=== PATIENT | female | born 1965 | race Caucasian/White ===

== ENCOUNTER → 2024-03-31 07:13 | Outpatient (REF) | payer BC, SELFPAY | LOC: HWRCS 07:13 | PROVIDERS: ATTENDING PHYSICIAN Internal Medicine Interventional Cardiology; FAMILY PHYSICIAN Family Medicine | DX: R07.89 Other chest pain (principal); I10 Essential (primary) hypertension; Z82.49 Family history of ischemic heart disease and other diseases of the circulatory system | CPT/HCPCS: 93306 ==

== ENCOUNTER → 2024-04-10 07:17 | Outpatient (REF) | payer BC, SELFPAY | LOC: DHCBC/DCA 07:17 | PROVIDERS: ATTENDING PHYSICIAN Internal Medicine Interventional Cardiology; FAMILY PHYSICIAN Family Medicine | DX: R07.89 Other chest pain (principal); I10 Essential (primary) hypertension; Z82.49 Family history of ischemic heart disease and other diseases of the circulatory system | CPT/HCPCS: 78452; 93017; A9500 ==

== ENCOUNTER → 2024-06-06 06:44 | Day surgery (SDC) | payer BC, SELFPAY | LOC: GI 06:44 | PROVIDERS: ATTENDING PHYSICIAN Internal Medicine Gastroenterology | DX: Z12.11 Encounter for screening for malignant neoplasm of colon (principal); K57.30 Diverticulosis of large intestine without perforation or abscess without bleeding; K64.8 Other hemorrhoids; Z86.010 Personal history of colon polyps | CPT/HCPCS: G0105 ==

== ENCOUNTER 2024-10-18 05:14 | Inpatient (IN) | payer BC, SELFPAY ==
[2024-10-17 21:50] VITALS: BP 149/80
--- NOTE | 2024-10-17 23:44 | ED.GENMED ---
History of Present Illness
<Twila Patino MD, Resident - Last Filed: 10/18/24 23:11>
General
Chief Complaint: Flank Pain
Source: patient
Time Seen by Provider: 10/17/24 23:35
History of Present Illness
History of Present Illness:
This is a 59 year old female patient with PMH of HTN coming to the ER with concerns of left flank pain. She states this afternoon she started to experience lower abdominal pain initially that she describes as a dull crampy pain. After some time,
pain migrated to a continuous left flank and she started to experience nausea which prompted her to come to the ER. In the waitining room, she experienced a severe pain episode in left flank that she described as 10/10 which was nonradiating. She
denies any vomiting, fever, chills or dysuria. She has regular bowel movements. She denies any prior personal or family history of kidney stones.
Past History
<Twila Patino MD, Resident - Last Filed: 10/18/24 23:11>
Past History
ED Past Medical History: HTN and Other (Diverticulitis)
ED Past Surgical History: Cholecystectomy
Social History
Tobacco: Non-smoker
Alcohol: Occasional
Drug: None
Personal:
Living: with family
Employment: Employed
Family History
Family History: CAD
Review of Systems
<Twila Patino MD, Resident - Last Filed: 10/18/24 23:11>
Review of Systems
Constitutional: Denies fever or chills
Cardiac: Denies chest pain or palpitations
ABD/GI: Reports nausea; Denies vomiting
: Reports flank pain (left); Denies dysuria
Phy Exam
<Twila Patino MD, Resident - Last Filed: 10/18/24 23:11>
General Physical Exam
General Presentation: well appearing and no apparent distress
Cardiovascular Exam
Cardiovascular Exam: regular rate/rhythm and no murmur
Heart Sounds: normal
Pulmonary Exam
Pulmonary Exam: lungs clear
Gastrointestinal Exam
Gastrointestinal Exam: non tender, soft, non distended and other (left flank tenderness)
Neurological Exam
Neurological Exam: oriented x3
Musculoskeletal Exam
Musculoskeletal Exam: no edema
Skin Exam
Skin Exam: warm/dry
Psychiatric Exam
Psychiatric Exam: normal mood/affect
Course
<Twila Viola Patino MD, Resident - Last Filed: 10/18/24 23:11>
Orders/Labs/Results
Orders:
Orders
10/17/24 23:52
UA Reflex to Culture [Urinalysis Reflex To Culture] Urgent
Date Specimen was Collected: 10/17/24
Time Specimen was Collected: 23:53
10/18/24 00:09
CT Abd/pel Without Iv Or Oral Urgent
Comment:
Reason For Exam: left flank pain
Ketorolac [Toradol] 30 mg IM NOW STA
Ondansetron Orally Disint [Zofran Odt (Orally Disintegrating)] 4 mg PO NOW STA
10/18/24 00:37
Urine Microscopic Reflex Cult Urgent
10/18/24 00:44
Ondansetron Injectable [Zofran] 4 mg .ROUTE .STK-MED ONE
10/18/24 00:46
BMP [Basic Metabolic Panel] Urgent
Complete Blood Count/With Diff Urgent
10/18/24 00:49
Ketorolac [Toradol] 30 mg IV NOW STA
10/18/24 00:51
Ondansetron Injectable [Zofran] 4 mg IV NOW STA
10/18/24 02:15
Ketorolac [Toradol] 15 mg IV NOW STA
10/18/24 02:42
UROLOGY CONSULT Urgent
Consulting Provider: Star Dhaliwal
Was physician already notified: Yes
Ceftriaxone Sodium [Rocephin] 500 mg IM NOW STA
10/18/24 02:47
Morphine Sulfate 4 mg IV NOW STA
10/18/24 03:25
CefTRIAXone [Rocephin] 1,000 mg IV NOW STA
10/18/24 04:56
Admit/Transfer Patient As Directed
Co-Sign Provider:
Level of Care: Inpatient admission
Assign to:: Medical/Surgical
Physician / Group: hospitalist
Diagnosis: nephrolithiasis
Reason for Hospitalization: left nephrolithiasis
Expected length of stay greater than two midnights?: Yes
ELOS- Estimated Length of Stay in days: 2
I certify the patient meets the requirements for IP care: Yes
PRN Pain Medication Management As Directed
May give lesser potent ordered pain med per pt: Yes
preference::
Protocol:: Medication orders for pain may be administered in a
manner that supports deferring to patient preference
when the pt is:
- Requesting an ordered lesser potent pain medication.
Least to most potent pain medications are defined
as: acetaminophen < NSAID < tramadol < opioids
(morphine, oxycodone, hydromorphone).
- Requesting a lesser dose of the same medication IF
ORDERED.
- Requesting a less intrusive route of administration
if both routes are prescribed by the provider (PO <
IV).
10/18/24 04:58
Code Status As Directed
Resuscitation Status: Full Code
10/18/24 Breakfast
NPO
Allow oral meds: No
Allow clear liquids: No
NPO with Ice Chips: Yes
10/18/24 06:22
Acetaminophen [Tylenol] 650 mg PO Q4HPRN PRN
Bisacodyl [Dulcolax] 10 mg RECTAL [id number] PRN
Docusate W/Senna [Senokot-S] 1 tablet PO BIDPRN PRN
Ketorolac [Toradol] 10 mg IV Q6HPRN PRN
Lactated Ringers [Lr] 1,000 ml IV 75 mls/hr
Morphine Sulfate 2 mg IV Q4HPRN PRN
Ondansetron Injectable [Zofran] 4 mg IV Q6HPRN PRN
Polyethylene Glycol Powder [Miralax] 17 grams PO DAILYPRN PRN
10/18/24 06:22
Activity As Directed
Activity Level: With Assistance
Vital Signs As Directed
Frequency: Per unit guidelines
DX Deep Vein Thrombosis Video Routine
10/18/24 18:00
Enoxaparin Sodium [Lovenox] 40 mg SC QPM
10/19/24 00:00
CefTRIAXone [Rocephin] 1,000 mg IV Q24H
10/19/24 06:00
Basic Metabolic Panel IN AM
Complete Blood Count/No Diff IN AM
Magnesium IN AM
PTT IN AM
Prothrombin Time IN AM
10/19/24 08:00
Amlodipine [Norvasc] 5 mg PO DAILY
Abnormal Lab Results
10/18/24 10/18/24
00:37 00:46
MCHC 32.4 L g/dL
(33.0-37.0)
MPV 11.0 H fL
(7.4-10.4)
Absolute Neuts (auto) 7.7 H 10^3/uL
(1.4-6.5)
Absolute Monos (auto) 0.7 H 10^3/uL
(0.1-0.6)
Lymphocytes % 17.4 L %
(20.5-51.1)
Glucose 113 H mg/dl
(70-99)
Ur Occult Blood Reflex Trace A
(Negative)
Urine Bacteria (Reflex) Few A
(Negative)
10/18/24 00:46
10/18/24 00:46
Vital Signs
Initial and Last Documented VS:
Initial Vital Signs
Temp Pulse Resp BP Pulse Ox
97.8 F 75 18 149/80 97
10/17/24 21:50 10/17/24 21:50 10/17/24 21:50 10/17/24 21:50 10/17/24 21:50
Last Documented Vital Signs
Temp Pulse Resp BP Pulse Ox
98.8 F 88 18 124/58 96
10/18/24 23:09 10/18/24 23:09 10/18/24 23:09 10/18/24 23:09 10/18/24 23:09
<Timothy Mcgee, DO - Last Filed: 10/18/24 00:11>
Orders/Labs/Results
Orders:
Orders
10/17/24 23:52
UA Reflex to Culture [Urinalysis Reflex To Culture] Urgent
Date Specimen was Collected: 10/17/24
Time Specimen was Collected: 23:53
10/18/24 00:09
CT Abd/pel Without Iv Or Oral Urgent
Comment:
Reason For Exam: left flank pain
Ketorolac [Toradol] 30 mg IM NOW STA
Ondansetron Orally Disint [Zofran Odt (Orally Disintegrating)] 4 mg PO NOW STA
10/18/24 00:37
Urine Microscopic Reflex Cult Urgent
10/18/24 00:44
Ondansetron Injectable [Zofran] 4 mg .ROUTE .STK-MED ONE
10/18/24 00:46
BMP [Basic Metabolic Panel] Urgent
Complete Blood Count/With Diff Urgent
10/18/24 00:49
Ketorolac [Toradol] 30 mg IV NOW STA
10/18/24 00:51
Ondansetron Injectable [Zofran] 4 mg IV NOW STA
10/18/24 02:15
Ketorolac [Toradol] 15 mg IV NOW STA
10/18/24 02:42
UROLOGY CONSULT Urgent
Consulting Provider: Star Dhaliwal
Was physician already notified: Yes
Ceftriaxone Sodium [Rocephin] 500 mg IM NOW STA
10/18/24 02:47
Morphine Sulfate 4 mg IV NOW STA
10/18/24 03:25
CefTRIAXone [Rocephin] 1,000 mg IV NOW STA
10/18/24 04:56
Admit/Transfer Patient As Directed
Co-Sign Provider:
Level of Care: Inpatient admission
Assign to:: Medical/Surgical
Physician / Group: hospitalist
Diagnosis: nephrolithiasis
Reason for Hospitalization: left nephrolithiasis
Expected length of stay greater than two midnights?: Yes
ELOS- Estimated Length of Stay in days: 2
I certify the patient meets the requirements for IP care: Yes
PRN Pain Medication Management As Directed
May give lesser potent ordered pain med per pt: Yes
preference::
Protocol:: Medication orders for pain may be administered in a
manner that supports deferring to patient preference
when the pt is:
- Requesting an ordered lesser potent pain medication.
Least to most potent pain medications are defined
as: acetaminophen < NSAID < tramadol < opioids
(morphine, oxycodone, hydromorphone).
- Requesting a lesser dose of the same medication IF
ORDERED.
- Requesting a less intrusive route of administration
if both routes are prescribed by the provider (PO <
IV).
10/18/24 04:58
Code Status As Directed
Resuscitation Status: Full Code
10/18/24 Breakfast
NPO
Allow oral meds: No
Allow clear liquids: No
NPO with Ice Chips: Yes
10/18/24 06:22
Acetaminophen [Tylenol] 650 mg PO Q4HPRN PRN
Bisacodyl [Dulcolax] 10 mg RECTAL [id number] PRN
Docusate W/Senna [Senokot-S] 1 tablet PO BIDPRN PRN
Ketorolac [Toradol] 10 mg IV Q6HPRN PRN
Lactated Ringers [Lr] 1,000 ml IV 75 mls/hr
Morphine Sulfate 2 mg IV Q4HPRN PRN
Ondansetron Injectable [Zofran] 4 mg IV Q6HPRN PRN
Polyethylene Glycol Powder [Miralax] 17 grams PO DAILYPRN PRN
10/18/24 06:22
Activity As Directed
Activity Level: With Assistance
Vital Signs As Directed
Frequency: Per unit guidelines
DX Deep Vein Thrombosis Video Routine
10/18/24 18:00
Enoxaparin Sodium [Lovenox] 40 mg SC QPM
10/19/24 00:00
CefTRIAXone [Rocephin] 1,000 mg IV Q24H
10/19/24 06:00
Basic Metabolic Panel IN AM
Complete Blood Count/No Diff IN AM
Magnesium IN AM
PTT IN AM
Prothrombin Time IN AM
10/19/24 08:00
Amlodipine [Norvasc] 5 mg PO DAILY
Abnormal Lab Results
10/18/24 10/18/24
00:37 00:46
MCHC 32.4 L g/dL
(33.0-37.0)
MPV 11.0 H fL
(7.4-10.4)
Absolute Neuts (auto) 7.7 H 10^3/uL
(1.4-6.5)
Absolute Monos (auto) 0.7 H 10^3/uL
(0.1-0.6)
Lymphocytes % 17.4 L %
(20.5-51.1)
Glucose 113 H mg/dl
(70-99)
Ur Occult Blood Reflex Trace A
(Negative)
Urine Bacteria (Reflex) Few A
(Negative)
10/18/24 00:46
10/18/24 00:46
Vital Signs
Initial and Last Documented VS:
Initial Vital Signs
Temp Pulse Resp BP Pulse Ox
97.8 F 75 18 149/80 97
10/17/24 21:50 10/17/24 21:50 10/17/24 21:50 10/17/24 21:50 10/17/24 21:50
Last Documented Vital Signs
Temp Pulse Resp BP Pulse Ox
98.8 F 88 18 124/58 96
10/18/24 23:09 10/18/24 23:09 10/18/24 23:09 10/18/24 23:09 10/18/24 23:09
<Twila Patino MD, Resident - Last Filed: 10/18/24 23:11>
*Critical Care Note
Total Time (30-74mins, 75-104mins- exclusive of procedures): Not Applicable
<Twila Patino MD, Resident - Last Filed: 10/18/24 23:11>
Update Note
Update Note:
Patient voided urine and appears to possibly has passed stone. CT abd showed left calyceal calcification [id number] with prominence of upper pole calyces and adjacent perinephric jovan and ?fornyceal rupture. Urology consulted, and pt is advised for OR
tomorrow for lithotripsy and stent placement. Pt will be admitted.
ED Attending Note
<Twila Patino MD, Resident - Last Filed: 10/18/24 23:11>
-
Portions of this chart may have been created with voice recognition software.� Occasional wrong word or��sound alike� substitutions may have occurred due to the inherent limitations of voice recognition software.
<Timothy Mcgee DO - Last Filed: 10/18/24 00:11>
ED Attending Note
Patient seen and examined by attending physician: Yes
I performed a history and physical exam of patient and discussed management with resident, I reviewed resident's note and agree with documented findings and plan of care.: Yes
ED Attending Note:
I have seen and evaluated the patient with a [id number] encounter. I have spoken to the advance practicer provider and involved in the medical history, the physical exam, medical decision making.
Evaluation and management service: agree unless noted differently below.
Results interpretation: agree unless noted differently below.
Focused HPI: 59-year-old female presenting with sudden onset of left flank pain. Since then, she has had a dull ache but it apparently comes and goes and becomes extremely painful. She denies a prior history of kidney stones. She developed a
significant pain episode in triage. On arrival back to her room, patient states she is feeling much better. She did urinate after giving a specimen and believes she passed a stone
Physical exam: Seen in bed comfortably. Very mild left lower quadrant pain.
Medical Decision Making: Given her history and complaint, we discussed likely kidney stone. It does appear that she passed a very small piece of sediment in her urine. Will obtain CT looking for more stones and hydronephrosis. Give dose of
Toradol will provide Zofran
Discharge Plan
Departure
Patient Disposition: Admit
Date of Disposition: 10/18/24
Time of Disposition: 03:08
Presentation/result/management discussed w/ accepting MD/DO: Hospitalist
Discharge Problem:
Nephrolithiasis
Interventions
Interventions:
*Risk Screen - Suicide Last Done: 10/17/24 21:50
*General Assessment Last Done: 10/17/24 21:50
*Neglect/Abuse Screening Last Done: 10/17/24 21:50
ED- Fall Risk Assessment Last Done: 10/17/24 23:48
*ED COVID-19 Vaccine History Last Done: 10/17/24 21:50
*Nursing Disposition Last Done: 10/18/24 05:58
OE-Myxmgn-Ovpzroreky Assessment Last Done: 10/17/24 23:43
ED-Female Genitourinary Assessment Last Done: 10/17/24 23:43
Discharge Date and Time
Discharge Date/Time: 10/18/24 06:04
[2024-10-17 23:47] VITALS: BP 137/69
[2024-10-17 23:50] VITALS: BMI 28.0
[2024-10-18] VITALS (16 sets, daily range): BP systolic 123–160; BP diastolic 58–107; BMI 27.4
[2024-10-18] MEDS: TORADOL 30 MG IV (00:49)
[2024-10-18] MEDS: ZOFRAN 4 MG IV (00:51)
[2024-10-18 00:56] LABS: Urine Albumin Negative (Neg - Trace); Urine Bilirubin Negative (Negative); Urine Character Clear (Clear); Urine Color Yellow; Urine Glucose Negative (Negative); Urine Ketone Negative (Negative); Urine Leukocyte Negative (Negative); Urine Nitrite Negative (Negative); Urine Occult Blood Trace (Negative); Urine Specific Gravity 1.005 (<1.030); Urine Urobilinogen Negative (Neg - 1+)
[2024-10-18 01:04] LABS: % Basophils 0.6 % (0-2); % Eosinophils 0.3 % (0-6); % Immature Granulocytes 0.3 % (0-0.5); % Lymphocytes 17.4 % (20.5-51.1); % Monocytes 6.3 % (1.7-9.3); % Neutrophils 75.1 % (42.2-75.2); Absolute Basophils 0.1 10^3/uL (0-0.2); Absolute Lymphocytes 1.8 10^3/uL (1.2-3.4); Absolute Monocytes 0.7 10^3/uL (0.1-0.6); Absolute Neutrophils 7.7 10^3/uL (1.4-6.5); Hematocrit 42.3 % (37.0-47.0); Hemoglobin 13.7 g/dL (12.0-16.0); Mean Corp Hgb Conc. 32.4 g/dL (33.0-37.0); Mean Corpuscular Hgb 28.8 pg (27.0-31.0); Mean Corpuscular Volume 88.9 fL (81.0-99.0); Nucleated Red Blood Cells % 0 %; Platelet Count 215 10^3/uL (130-400); Red Blood Cell Count 4.76 10^6/uL (4.20-5.40); Red Cell Dist. Width 12.5 % (11.5-14.5); White Blood Cell Count 10.3 10^3/uL (4.8-10.8)
[2024-10-18 01:12] LABS: Blood Urea Nitrogen 17 mg/dl (7-17); Calcium 9.4 mg/dl (8.4-10.2); Carbon Dioxide 24 mmol/L (22-30); Chloride 102 mmol/L (98-107); Estimated Creatinine Clearance 96 ml/min; Glucose 113 mg/dl (70-99); Potassium 4.2 mmol/L (3.5-5.1); Sodium 139 mmol/L (135-145); eGFR > 60.00
[2024-10-18 02:13] LABS: Urine Bacteria Few (Negative); Urine Red Blood Cell 0-2 /HPF (0-2); Urine Squamous Cell 0-2 /LPF (Few); Urine White Cell 0-2 /HPF (0-5)
[2024-10-18] MEDS: TORADOL 15 MG IV (02:23)
[2024-10-18] MEDS: MORPHINE SULFATE 4 MG IV (03:41)
[2024-10-18] MEDS: ROCEPHIN 1000 MG IV ×2 (03:41→23:15)
--- NOTE | 2024-10-18 05:11 | HPS.HSE ---
Family Physician
-
Family Physician: Romulo Hickey
Chief Complaint
-
Abdominal and flank pain
History of Present Illness
This is a 59-year-old female with history of hypertension presenting to the emergency department with acute onset of left-sided flank pain.
Patient reports that she been in usual state of health up until around 4:30 PM today when she developed bilateral abdominal crampy pain that was severe. Then the pain radiated to the left flank and has been there since. She reported severe left
flank pain with nausea but no vomiting. Because of the nausea that worsened when she laid she decided come to the emergency department. She had another severe episode on arrival to the ED noting the pain was more severe at around 10 PM. Patient
denies fevers or chills. She denies any hematuria. She denies history of kidney stones.
In the ED she was afebrile, hemodynamically stable with normal oxygen on room air. CBC was within normal limits. Chemistries BUN/creatinine were also normal. She had a CT of the abdomen pelvis showing a left calyceal calcification that is 10 x 40
mm with prominent of the upper pole calyces and adjacent perinephric edema.
Medical History
Past Medical History
Past Medical History: Reports HTN
Past Surgical History: Reports Cholecystectomy
Social History
Tobacco: Non-smoker
Alcohol: Occasional
Drug: None
Personal:
Living: With Family
Employment: Employed
Family History
Family History: Not pertinent
Allergies / Home Medications
Allergies reflects when Allergies were last updated in [facility].
Home Medications with original date entered in [facility]
Allergy/Medication List:
Allergies
Allergy/AdvReac Type Severity Reaction Status Date / Time
No Known Allergies Allergy Verified 10/17/24 21:49
Home Medications
Amlodipine 5mg tablet, 5mg po daily
Review of Systems
-
History Source: Patient
Constitutional: Reports No Symptoms
EENT: Reports No Symptoms
Respiratory: Reports No Symptoms
Cardiac: Reports No Symptoms
Abdomen/GI: Reports No Symptoms
: Reports Flank Pain
Musculoskeletal: Reports No Symptoms
Skin: Reports No Symptoms
Neurological: Reports No Symptoms
Endocrine: Reports No Symptoms
Hematologic/Lymphatic: Reports No Symptoms
Psych: Reports No Symptoms
Physical Exam
Vital Signs
Vital Signs
Temp Pulse Resp BP Pulse Ox
97.8 F 69 18 145/63 95
10/17/24 21:50 10/18/24 03:38 10/18/24 03:38 10/18/24 03:38 10/18/24 03:39
Physical Exam
General: Well Developed, Well Nourished, No Apparent Distress and Comfortable
HEENT: NormoCephalic, Anicteric, Moist mucous membranes and Atraumatic
Respiratory: Clear
Cardiac: S1/S2 and Regular Rhythm
Breast: Deferred by me
GI: Soft, Non Tender and Non Distended
Rectal: Deferred by Provider
Genito-urinary: Costovertebral angle tend
Musculoskeletal: No Clubbing, No Cyanosis and No Edema
Neuro: AO x 3
Hematologic/Lymphatic: No Lymphadenopathy
Psych: Calm
Laboratory Results
-
10/18/24 00:46
10/18/24 00:46
Data Reviewed
-
CT Scan: Report Reviewed by me
Lab Data: Labs Reviewed by me
Old Records: Reviewed
Impression/Plan
-
IMPRESSION:
59 y.o female with hypertension coming in with flank pain. Found to have a left sided large calcyeal stone with possible rupture. She is afebrile and shows no signs of acute infection.
PLAN:
1. Symptomatic nephrolithiasis w/ Left sided calyceal stone with possible rupture.
- admit to med/surg
- IV ceftriaxone for now
- npo
- urology aware and plan for OR today
- blood cultures if spike fever
DVT PPX - lovenox sq
Code status - full code
[2024-10-18] MEDS: LR 1000 IV (06:39)
[2024-10-18] MEDS: TORADOL 10 MG IV ×3 (08:24→20:34)
--- NOTE | 2024-10-18 10:34 | W.PN.URO.CBU ---
Today's Communication / Plan
-
for op room npo rocephin
Assessment / Plan
-
obstructing renal stones with forniceal ruptire tomop room
Diagnosis
-
Date of Service: October 18, 2024
-
Patient Diagnosis:left lg renal calculi forniceal rpture acute pain probable
Post Op Day:
Subjective
-
colic no fevr
Objective
-
Vital Signs
Temp Pulse Resp BP Pulse Ox
98.4 F 57 16 134/65 95
10/18/24 07:54 10/18/24 07:54 10/18/24 07:54 10/18/24 07:54 10/18/24 08:00
Laboratory Results
10/18/24 00:46
10/18/24 00:46
Review of Systems
-
Abdomen/GI: Nausea
: Flank Pain
Physical Exam
-
General - well developed, well nourished, non toxic but pain
Chest - clear bilaterally
Abdomen - soft, non-tender, positive bowel sounds, pos cvat, no incisional pain or distention
Genitalia - normal
Rectal - normal
Skin - warm & dry with no rash
Neuro - AOx3, no motor deficits
Extremities - no clubbing, no cyanosis, no edema
Incision - clean, dry
Dressing - clean, dry, intact
Care Review
Data Reviewed
Discussed with: Hospitalist, Nursing and Family
CT Scan: Image Pers Reviewed
--- NOTE | 2024-10-18 10:37 | W.SUR.POST ---
Surgical Immediate Post Op
Note
Pre Op Diagnosis: left renal stones with obstruction
Post Op Diagnosis: same
Procedure Performed: left ureteroscp y and laser 3 stones basket extractoion and jj stent
Primary Surgeon: zenaida
Secondary Surgeons:
Anesthesia:general dr Hendricks
Estimated Blood Loss: 10
Fluids: nss
Drains/Shunts:6 fr 24 cm jj stent
Specimens/Culturesstones:
Doppler/Duplex/Angio (Y/N):
Complications: 0
Operative Findings:
3llg stones 2 upper pole smaller lllp lasered and removed representaive samples
[2024-10-18] MEDS: DEMEROL 12.5 MG IV (10:50)
--- NOTE | 2024-10-18 11:17 | CM ---
Addendum entered by Marylu Lenz 10/18/24 12:08:
Patient seen at bedside after OR with also present. Patient states that they [place] a [place] community. Patient states that she has a first floor set up. Patient PCP is Dr. Hickey and she uses the [facility] [address] Patient stated that she
anticipates going home today. CM will continue to follow for discharge planning needs.
Plan; home with no needs anticipated
Original Note:
Cm attempted to visit with patient but she was in OR. CM will return to assess patient needs.
--- NOTE | 2024-10-18 11:18 | PTCARENOTE ---
Pt arrived back to [facility] from PACU s/p later litho, stent placement. Pt AAOx3, drowsy, on 2L NC satting 96%. Pt states no pain at this time, just mild pressure. Care ongoing.
--- NOTE | 2024-10-18 11:34 | W.PN.UPDATE ---
Update Note
Progress Note Update
Seen and examined independent of overnight physician. Nonbillable note. Seen preop. States of intermittent flank pain. Denies any nausea or vomiting. Denies any prior history of renal stones.
General: Well Developed, Well Nourished, No Apparent Distress and Comfortable
HEENT: NormoCephalic, Anicteric, Moist mucous membranes and Atraumatic
Respiratory: Clear
Cardiac: S1/S2 and Regular Rhythm
Breast: Deferred by me
GI: Soft, Non Tender and Non Distended
Rectal: Deferred by Provider
Genito-urinary: Costovertebral angle tend
Musculoskeletal: No Clubbing, No Cyanosis and No Edema
Neuro: AO x 3
Psych: Calm
IMPRESSION:
59 y.o female with hypertension coming in with flank pain. Found to have a left sided large calcyeal stone with possible rupture. She is afebrile and shows no signs of acute infection.
PLAN:
Symptomatic nephrolithiasis w/ Left sided calyceal stone with possible rupture.
- IV ceftriaxone for now. Discussed with neurology recommending 5 days of total antibiotics on discharge.
-Status post left ureteral scopy with renal stone extraction and JJ stent placement.
- blood cultures if spike fever
DVT PPX - lovenox sq
Code status - full code
d/w with urology.
[2024-10-18] MEDS: ULTRAM 25 MG PO (16:32)
[2024-10-18] MEDS: STERILE WATER FOR INJECTION 10 ML IV (23:16)
[2024-10-19 04:54] LABS: Hematocrit 41.2 % (37.0-47.0); Hemoglobin 13.1 g/dL (12.0-16.0); Mean Corp Hgb Conc. 31.8 g/dL (33.0-37.0); Mean Corpuscular Hgb 28.6 pg (27.0-31.0); Mean Platelet Volume 11.2 fL (7.4-10.4); Platelet Count 204 10^3/uL (130-400); Red Blood Cell Count 4.58 10^6/uL (4.20-5.40); Red Cell Dist. Width 12.5 % (11.5-14.5); White Blood Cell Count 13.5 10^3/uL (4.8-10.8)
[2024-10-19 04:57] LABS: INR 0.93; PT 12.8 Sec (11.4-14.6)
[2024-10-19 04:58] LABS: APTT 27.6 Sec (23.4-35.0)
[2024-10-19 05:17] LABS: Blood Urea Nitrogen 26 mg/dl (7-17); Calcium 9.4 mg/dl (8.4-10.2); Carbon Dioxide 26 mmol/L (22-30); Chloride 105 mmol/L (98-107); Estimated Creatinine Clearance 74 ml/min; Glucose 126 mg/dl (70-99); Potassium 4.4 mmol/L (3.5-5.1); Sodium 142 mmol/L (135-145); eGFR > 60.00
[2024-10-19] MEDS: TORADOL 10 MG IV (05:25)
[2024-10-19 07:05] VITALS: BP 144/75
[2024-10-19] MEDS: NORVASC 5 MG PO (08:11)
--- NOTE | 2024-10-19 08:48 | W.PN.URO.CBU ---
Today's Communication / Plan
-
home today
Assessment / Plan
-
post op stent discomfiort may discharge will follow up at [facility] for se[tent removal
Diagnosis
-
Date of Service: October 19, 2024
-
Patient Diagnosis:
Post Op Day:
Patient Diagnosis:left lg renal calculi forniceal rpture acute pain probable
Post Op Day:
Objective
-
Vital Signs
Temp Pulse Resp BP Pulse Ox
98.1 F 68 17 144/75 93
10/19/24 07:05 10/19/24 07:05 10/19/24 07:05 10/19/24 08:11 10/19/24 07:05
Intake and Output
10/18/24 10/19/24 10/20/24
06:59 06:59 06:59
Intake Total 3030 / 3030
Output Total 150 / 150
Balance 2880 / 2880
Intake:
Oral fluids 2400 / 2400
IV fluids (Total) 630 / 630
LR 30 / 30
Output:
Urine, Voided 150 / 150
Other:
Number of approximated MODERATE 2
amounts of urine
Number of approximated LARGE 1
amounts of urine
Laboratory Results
10/19/24 04:15
10/19/24 04:15
Review of Systems
-
Abdomen/GI: Abdominal Pain
: Frequency
Physical Exam
-
General - well developed, well nourished, no acute distress
Chest - clear bilaterally
Abdomen - soft, non-tender, positive bowel sounds, no CVAT, no incisional pain or distention
Genitalia - normal
Rectal - normal
Skin - warm & dry with no rash
Neuro - AOx3, no motor deficits
Extremities - no clubbing, no cyanosis, no edema
Incision - clean, dry
Dressing - clean, dry, intact
--- NOTE | 2024-10-19 10:19 | CM ---
Patient states she is for discharge home today with no needs anticipated. CM will continue to follow for discharge planning needs.
Plan; home today no needs anticipated
--- NOTE | 2024-10-19 10:33 | W.PN.HOSP.TC ---
Today's Communication/Plan
-
Po abx on dc
Op urology f/u
Assessment / Plan
Assessment / Plan
59 y.o female with hypertension coming in with flank pain. Found to have a left sided large calcyeal stone with possible rupture. She is afebrile and shows no signs of acute infection.
PLAN:
Symptomatic nephrolithiasis w/ Left sided calyceal stone
- IV ceftriaxone for now. Discussed with urology recommending 5 days of total antibiotics on discharge.
-Status post left ureteral scopy with renal stone extraction and JJ stent placement.
- Mild leukocytosis likely reactive. Remains afebrile.
Primary HTN-Cont norvvasc.
DVT PPX - lovenox sq
Code status - full code
More than 30 minutes spent in discharge including
Final examination of the patient
Summarizing hospital stay
Instructions for continuing care to all relevant caregivers
Preparation of discharge records, prescriptions, and referral forms
Total time spent (in minutes): 52
Anticipated Discharge: Today
Subjective/Interval History
-
Date of Service: October 19, 2024
feeling better
intermittent flank pain
Objective Data
-
Labs:
Laboratory Results
10/19/24
04:15
WBC 13.5 H
Hgb 13.1
Hct 41.2
Plt Count 204
PT 12.8
INR 0.93
APTT 27.6
Sodium 142
Potassium 4.4
Chloride 105
Carbon Dioxide 26
BUN 26 H
Creatinine 0.9
Glucose 126 H
Calcium 9.4
Vital Signs:
Vital Signs
Temp Pulse Resp BP Pulse Ox
98.1 F 68 17 144/75 93
10/19/24 07:05 10/19/24 07:05 10/19/24 07:05 10/19/24 08:11 10/19/24 08:00
I&O
10/18/24 10/19/24 10/20/24
06:59 06:59 06:59
Intake Total 3030 / 3030
Output Total 150 / 150
Balance 2880 / 2880
Physical Exam
-
General: Well Developed and No Apparent Distress
HEENT: Normocephalic, Atraumatic and Moist Mucous Membranes
Respiratory: Clear to Auscultation
Cardiac: Regular Rhythm and S1/S2; Negative Murmur, Rub or Gallop
GI: Soft, Nontender, Nondistended and Normal Bowel Sounds; Negative Organomegaly
Rectal: Deferred by Provider
Musculoskeletal: No Clubbing, No Cyanosis and No Edema
Skin: Negative Rash
Neuro: Nonfocal/Grossly Intact
--- NOTE | 2024-10-19 10:36 | W.DCSUMMARY ---
Discharge Summary
Discharge Data
Date of Admission: 10/18/24
Date of Discharge: 10/19/24
-
Pending Results: No
Hospital Course
59-year-old female past medical history of primary hypertension was presented with complaint of flank pain. Patient underwent imaging study which showed that she had renal stone left-sided obstructed. Patient was started on IV fluids and
antibiotics. Patient was eval per urology and patient underwent left ureteroscopy with renal stone extraction and stent placement. Postop patient with intermittent flank pain and mild hematuria which is expected per urology. Dr. Dhaliwal
recommended patient to be discharged on oral antibiotics for 5 days. Patient will need to follow-up with urology for ureteral stent removal as outpatient. Patient was afebrile and was tolerating diet and vital signs are stable and will be
discharged home.
Discharge Plan
-
Patient Disposition: Home (Routine Discharge)
Discharge Diagnosis/Procedures: Symptomatic nephrolithiasis with Left sided calyceal stone s/p cystoscopy s/p ureteroscopy with stone extraction/lithotripsy and stent placement
Condition: Fair
Diet: As tolerated
Activity: With assistance
Driving Restrictions: No driving for 24 hours
Referrals:
Star Dhaliwal MD [Active] - (call dr parker urology [phone] for update and ext 5 to schedue stent rtemval 2- 4 weks expect blood in urie pressure frequenctuy urgency of urination)
Romulo Hickey MD [Family Provider] -
Prescriptions:
New
cefadroxil 1 gram tablet
1,000 mg PO BID 5 Days Qty: 10 0RF
Continued
amlodipine 5 mg Tablet
5 mg PO DAILY
Discharge Orders:
Discharge Patient (As Directed); Ordered 10/19/24
Ordered By: Jacek Bull
Discharge Date and Time
Discharge Date/Time: 10/19/24 11:00
Print Language: BHUTANESE
[2024-10-19 10:49] VITALS: BP 135/77
== END 2024-10-19 11:00 | disposition home or self-care (01) | DRG 661 ==
LOC: 2 SOUTH 05:14
PROVIDERS: ADMITTING PHYSICIAN Internal Medicine; ATTENDING PHYSICIAN Hospitalist; CONSULT PHYSICIAN Specialist; EMERGENCY PHYSICIAN Student in an Organized Health Care Education/Training Program; FAMILY PHYSICIAN Family Medicine
PROC: 0T778DZ Dilation of Left Ureter with Intraluminal Device, Via Natural or Artificial Opening Endoscopic (ICD-10-PCS; 2024-10-18)
PROC: 0TCB8ZZ Extirpation of Matter from Bladder, Via Natural or Artificial Opening Endoscopic (ICD-10-PCS; 2024-10-18)
DX: N20.0 Calculus of kidney (principal); I10 Essential (primary) hypertension
CPT/HCPCS: 74018; 74176; 76000; 80048; 81003; 81015; 82365; 83735; 85025; 85027; 85610; 85730; 96372; 96374; 96375; 96376; 99284; A4300; C1894; C2617

== ENCOUNTER 2024-10-20 16:39 | Day surgery (SDC) | payer BC, SELFPAY ==
[2024-10-20] VITALS (15 sets, daily range): BP systolic 112–144; BP diastolic 66–85; BMI 26.8
[2024-10-20 12:57] LABS: % Basophils 0.3 % (0-2); % Eosinophils 0.1 % (0-6); % Immature Granulocytes 0.5 % (0-0.5); % Lymphocytes 9.9 % (20.5-51.1); % Monocytes 6.5 % (1.7-9.3); % Neutrophils 82.7 % (42.2-75.2); Absolute Immature Granulocytes 0.1 10^3/uL (0-0.05); Absolute Lymphocytes 1.3 10^3/uL (1.2-3.4); Absolute Monocytes 0.9 10^3/uL (0.1-0.6); Absolute Neutrophils 11.2 10^3/uL (1.4-6.5); Hematocrit 43.2 % (37.0-47.0); Hemoglobin 14.3 g/dL (12.0-16.0); Mean Corp Hgb Conc. 33.1 g/dL (33.0-37.0); Mean Corpuscular Hgb 29.4 pg (27.0-31.0); Mean Corpuscular Volume 88.7 fL (81.0-99.0); Mean Platelet Volume 10.8 fL (7.4-10.4); Nucleated Red Blood Cells % 0 %; Platelet Count 209 10^3/uL (130-400); Red Blood Cell Count 4.87 10^6/uL (4.20-5.40); Red Cell Dist. Width 12.7 % (11.5-14.5); White Blood Cell Count 13.5 10^3/uL (4.8-10.8)
[2024-10-20] MEDS: NSS 1000 IV ×2 (13:05→19:30)
[2024-10-20] MEDS: ZOFRAN 4 MG IV ×3 (13:05→18:23)
[2024-10-20] MEDS: DILAUDID 1 MG IV (13:05)
[2024-10-20 13:15] LABS: ALT (SGPT) 22 U/L (0-35); AST (SGOT) 32 U/L (14-36); Albumin 4.5 g/dl (3.5-5.0); Alkaline Phosphatase 84 U/L (38-126); Blood Urea Nitrogen 23 mg/dl (7-17); Calcium 9.7 mg/dl (8.4-10.2); Carbon Dioxide 26 mmol/L (22-30); Chloride 103 mmol/L (98-107); Glucose 105 mg/dl (70-99); Potassium 4.3 mmol/L (3.5-5.1); Sodium 142 mmol/L (135-145); Total Bilirubin 0.9 mg/dl (0.2-1.3); Total Protein 7.8 g/dl (6.3-8.2); eGFR > 60.00
[2024-10-20 14:35] LABS: Urine Albumin Trace (Neg - Trace); Urine Bilirubin Negative (Negative); Urine Character Very Cloudy (Clear); Urine Glucose Negative (Negative); Urine Ketone Trace (Negative); Urine Leukocyte 2+ (Negative); Urine Nitrite Negative (Negative); Urine Occult Blood 4+ (Negative); Urine Urobilinogen Negative (Neg - 1+)
[2024-10-20 14:57] LABS: Urine Color Pink
[2024-10-20 15:03] LABS: Urine Amorphous Seen; Urine Squamous Cell 0-2 /LPF (Few)
[2024-10-20 15:04] LABS: Urine Red Blood Cell >100 /HPF (0-2)
[2024-10-20 15:05] LABS: Urine White Cell 30-40 /HPF (0-5)
[2024-10-20] MEDS: TORADOL 15 MG IV (15:17)
--- NOTE | 2024-10-20 15:50 | ED.GENMED ---
History of Present Illness
General
Chief Complaint: Back Pain
Source: patient and spouse
Time Seen by Provider: 10/20/24 12:33
History of Present Illness
History of Present Illness:
This is 59-year-old female who presents with severe sudden pain in her left flank. She was recently here for kidney stone a stent placed. She had had mild discomfort in her pelvis related to the stent but that seemed to have been stable. Tonight
the pain got much worse. No vomiting or fevers. Pain is severe on my exam
Past History
Past History
ED Past Medical History: HTN and Other (Diverticulitis kidney stones)
ED Past Surgical History: Cholecystectomy and Urological (Ureteral stent)
Social History
Tobacco: Non-smoker
Alcohol: Occasional
Drug: None
Personal:
Living: with family
Employment: Employed
Family History
Family History: CAD
Phy Exam
Physical Exam
Physical Exam:
CONSTITUTIONAL Patient alert and oriented to person, place and time. Moderate to severe pain distress. Vital signs reviewed.
HEAD atraumatic, normocephalic.
EYES eyelids normal to inspection, Extraocular muscles intact, Conjunctiva normal, Sclera normal.
NECK normal range of motion, Trachea midline, no jugular venous distention.
RESPIRATORY CHEST No respiratory distress noted, Chest expansion equal
ABDOMEN abdomen nontender, Bowel sounds normal. No distention.
BACK normal inspection, no obvious deformities
UPPER EXTREMITY range of motion normal, Motor strength normal, no cyanosis, no edema.
LOWER EXTREMITY range of motion normal, Motor strength normal, no cyanosis, no edema.
NEURO Speech normal, No focal motor deficits, Nathrop coma scale 15, Memory normal, Cranial Nerves intact to screening exam.
SKIN skin warm, dry, and normal in color.
Course
Orders/Labs/Results
Orders:
Orders
10/20/24 Lunch
Regular
At Your Request: Full Participation
10/20/24 12:43
IV Insert/Care/Rem.- Treatment PRN
10/20/24 12:44
Complete Blood Count/With Diff Urgent
Comprehensive Metabolic Panel Urgent
10/20/24 12:55
0.9% Sodium Chloride 1000 ml [Nss] 1,000 ml IV BOLUS
HYDROmorphone [Dilaudid] 1 mg IV NOW STA
Ondansetron Injectable [Zofran] 4 mg IV NOW STA
10/20/24 13:29
CT Abd/pel Without Iv Or Oral Urgent
Comment:
Reason For Exam: L flank pain, recent ureteral stent
10/20/24 14:27
Urinalysis Reflex To Culture Urgent
Date Specimen was Collected: 10/20/24
Time Specimen was Collected: 14:02
Urine Microscopic Reflex Cult Urgent
Urine Culture Urgent
JAYDON Source: U
Specimen Description:
Date Specimen was Collected: 10/20/24
Time Specimen was Collected: 14:02
10/20/24 15:07
Ketorolac [Toradol] 15 mg IV NOW STA
Ondansetron Injectable [Zofran] 4 mg IV NOW STA
10/20/24 15:33
Fentanyl Citrate/Pf [Sublimaze] 25 mcg IV PACU-Q5MPRN PRN
Fentanyl Citrate/Pf [Sublimaze] 50 mcg IV PACU-Q5MPRN PRN
Meperidine [Demerol] 12.5 mg IV PACU-Q5MPRN PRN
Ondansetron Injectable [Zofran] 4 mg IV PACU-ONCEPRN PRN
Prochlorperazine [Compazine] 5 mg IV PACU-ONCEPRN PRN
Notify MD As Directed
Notify physician if: for SDS patients with known or suspected sleep obstructive sleep apnea, monitor in the
PACU.
Notify MD for any apneic/desaturation episodes
O2 Therapy [RESP] Urgent
Titrate/Wean O2 to maintain O2 sat greater than (%): 92
Special Instructions: -Provide supplemental oxygen to achieve O2 sat of 92% or greater.
-After 15 min, may wean O2 and discontinue if patient is able to maintain O2 sat of 92%
or greater during recovery period.
If patient is a discharge home, without oxygen therapy, notify anestheiologist if
unable to maintain O2 SAT of 92% or greater on room air for MD clearance.
10/20/24 15:51
CefTRIAXone [Rocephin] 1,000 mg IV NOW STA
10/20/24 15:59
Sterile Water [Sterile Water For Injection] 10 ml .ROUTE .STK-MED ONE
10/20/24 16:35
Code Status As Directed
Resuscitation Status: Full Code
Acetaminophen [Tylenol] 650 mg PO Q4HPRN PRN
Morphine Sulfate 4 mg IV Q1HPRN PRN
Ondansetron Injectable [Zofran] 4 mg IV Q6HPRN PRN
Oxycodone/Acetaminophen [Percocet 5/325] 1 tablet PO Q4HPRN PRN
Oxycodone/Acetaminophen [Percocet 5/325] 2 tablet PO Q4HPRN PRN
Activity As Directed
Activity Level: As Tolerated
Intake/ Output As Directed
Frequency: Per unit guidelines
Okay to Shower As Directed
Strain Urine As Directed
Surgical Procedure As Directed
Surgical Procedure: left rgp with exchange jj stents
Vital Signs As Directed
Frequency: Per unit guidelines
10/20/24 16:38
Iohexol [Omnipaque] 50 ml .ROUTE .STK-MED ONE
Andujar Catheter [Catheter- Indwelling] As Directed
Reason for insertion: Em-Op Remove POD #2
May discontinue catheter when patient ambulating: Yes
10/20/24 16:45
0.9% Sodium Chloride 1000 ml [Nss] 1,000 ml IV 125 mls/hr
10/20/24 16:47
Dexamethasone Sod Phosphate [Decadron] 20 mg .ROUTE .STK-MED ONE
Fentanyl Citrate/Pf [Sublimaze] 100 mcg .ROUTE .STK-MED ONE
Lidocaine HCl/Pf [Xylocaine-Mpf 1% Vial] 50 mg .ROUTE .STK-MED ONE
Midazolam HCl [Versed] 2 mg .ROUTE .STK-MED ONE
Propofol [Diprivan] 20 ml .ROUTE .STK-MED
10/20/24 16:50
CR Abdomen - 1 View Routine
Reason For Exam: EXCHANGE OF STENT, LEFT SIDE
RF Fluoroscopy, C-arm Routine
Reason For Exam: EXCHANGE OF STENT, LEFT SIDE
10/20/24 17:39
Advance Diet as Tolerated As Directed
Goal Diet: Regular
10/20/24 18:09
Admit Patient As Directed
Co-Sign Provider:
Level of Care: Post Proc/Surg Recovery
Assign to:: Medical/Surgical
Physician / Group: isra
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
Patient Condition: Good
Reason for Hospitalization: ivf monitoir renla ruptured
Expected length of stay greater than two midnights?: No
I certify the patient meets the requirements for IP care: No
Reason for Overnight Stay: Standard of Care
PRN Pain Medication Management As Directed
May give lesser potent ordered pain med per pt: Yes
preference::
Protocol:: Medication orders for pain may be administered in a
manner that supports deferring to patient preference
when the pt is:
- Requesting an ordered lesser potent pain medication.
Least to most potent pain medications are defined
as: acetaminophen < NSAID < tramadol < opioids
(morphine, oxycodone, hydromorphone).
- Requesting a lesser dose of the same medication IF
ORDERED.
- Requesting a less intrusive route of administration
if both routes are prescribed by the provider (PO <
IV).
10/20/24 18:11
Sequential Compression Sleeves [Pneumatic Compression Sleeves] As Directed
Type: Thigh high
10/20/24 18:12
DX Deep Vein Thrombosis Video Routine
10/20/24 19:00
Flush (0.9% Sodium Chloride) [Flush (Nss)] See Dose Instructions IV PER PROTOCOL
10/20/24 20:00
LevoFLOXacin 500 MG/100 ML [Levaquin] 500 mg in 100 ml IV Q24H
10/21/24 05:34
BMP [Basic Metabolic Panel] Routine
Complete Blood Count/With Diff Routine
10/21/24 08:00
Amlodipine [Norvasc] 5 mg PO DAILY
10/21/24 12:08
Ketorolac [Toradol] 30 mg IV NOW STA
Andujar, Discontinue [Discontinue Andujar Catheter] As Directed
Comment:
10/21/24 12:11
Ketorolac [Toradol] 15 mg IV Q8HPRN PRN
10/22/24 08:49
Discharge Patient As Directed
Discharge patient after: now
Is patient a candidate for the influenza vaccine?: No
Do you have a designated caregiver: Yes-same as spokesperson
Caregiver notified of upcoming discharge?: Yes
Abnormal Lab Results
10/20/24 10/20/24 10/21/24
12:44 14:27 05:34
WBC 13.5 H 10^3/uL 12.8 H 10^3/uL
(4.8-10.8) (4.8-10.8)
MCHC 32.6 L g/dL
(33.0-37.0)
MPV 10.8 H fL 11.5 H fL
(7.4-10.4) (7.4-10.4)
Abs Immat Gran (auto) 0.1 H 10^3/uL
(0-0.05)
Absolute Neuts (auto) 11.2 H 10^3/uL 11.6 H 10^3/uL
(1.4-6.5) (1.4-6.5)
Absolute Lymphs (auto) 0.7 L 10^3/uL
(1.2-3.4)
Absolute Monos (auto) 0.9 H 10^3/uL
(0.1-0.6)
Neutrophils % 82.7 H % 90.3 H %
(42.2-75.2) (42.2-75.2)
Lymphocytes % 9.9 L % 5.7 L %
(20.5-51.1) (20.5-51.1)
BUN 23 H mg/dl
(7-17)
Glucose 105 H mg/dl 117 H mg/dl
(70-99) (70-99)
Urine Ketones Trace A
(Negative)
Ur Occult Blood Reflex 4+ A
(Negative)
Leukocyte Esterase Rfl 2+ A
(Negative)
Urine RBC >100 A /HPF
(0-2)
Urine WBC (Reflex) 30-40 A /HPF
(0-5)
10/21/24 05:34
10/21/24 05:34
Vital Signs
Initial and Last Documented VS:
Initial Vital Signs
Temp Pulse Resp BP Pulse Ox
98.4 F 88 16 143/85 97
10/20/24 11:35 10/20/24 11:35 10/20/24 11:35 10/20/24 11:35 10/20/24 11:35
Last Documented Vital Signs
Temp Pulse Resp BP Pulse Ox
98.6 F 76 16 132/73 97
10/22/24 09:00 10/22/24 09:00 10/22/24 09:00 10/22/24 09:00 10/22/24 09:00
MDM/Problems Addressed
Differential Diagnosis Includes:
Calyceal rupture, UTI, stent displacement, kidney stone
MDM/Problems Addressed:
Displaced ureteral stent, nephrolithiasis
*Radiology
Radiology exam reviewed: radiology read reviewed
*Pulse Oximetry
Patient hypoxic: no
*Critical Care Note
Total Time (30-74mins, 75-104mins- exclusive of procedures): Not Applicable
Data Reviewed
Review of Other/Old Records Reveals: Labs, Records and Operative Reports (Urologic operative report reviewed)
Source: patient and spouse
Patient Management
Discussion with other providers: Aircraft Load Controller (Case discussed with Dr. Dhaliwal)
Escalation/DeEscalation of care consider admission/obs:
59-year-old female with acute onset of flank pain. CT reveals displaced stent. Dr. Dhaliwal evaluate the patient emergency department and will go to the operating room
ED Attending Note
-
Portions of this chart may have been created with voice recognition software.� Occasional wrong word or��sound alike� substitutions may have occurred due to the inherent limitations of voice recognition software.
Discharge Plan
Departure
Patient Disposition: Admit
Date of Disposition: 10/20/24
Time of Disposition: 15:50
Admit to: Med/Surg
Presentation/result/management discussed w/ accepting MD/DO: Isra
Discharge Problem:
Urinoma, Colic, ureteral
Interventions
Interventions:
*Risk Screen - Suicide Last Done: 10/20/24 11:39
*General Assessment Last Done: 10/20/24 12:55
*Neglect/Abuse Screening Last Done: 10/20/24 11:39
*ED COVID-19 Vaccine History Last Done: 10/20/24 12:55
*Nursing Disposition Last Done: 10/20/24 16:38
ED-Musculoskeletal Assessment Last Done: 10/20/24 14:36
ED-Skin Assessment Last Done: 10/20/24 14:36
Discharge Date and Time
Discharge Date/Time: 10/20/24 16:39
[2024-10-20] MEDS: ROCEPHIN 1000 MG IV (16:04)
--- NOTE | 2024-10-20 16:39 | W.PN.URO.CBU ---
Today's Communication / Plan
-
to,op room for exchange stent and rgp irf fails then perc tube ravi take to o latha now
Assessment / Plan
-
lt forniceal rupture with increase left urinioma as left jj stent migrated below et upj and is edematous twth hydro
Diagnosis
-
Date of Service: October 20, 2024
-
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
Post Op Day:
Subjective
-
no dodie lg pain
Objective
-
Vital Signs
Temp Pulse Resp BP Pulse Ox
98.5 F 87 18 138/79 95
10/20/24 15:02 10/20/24 16:35 10/20/24 16:35 10/20/24 16:35 10/20/24 16:35
Laboratory Results
10/20/24 12:44
10/20/24 12:44
Review of Systems
-
: Flank Pain
Physical Exam
-
General - well developed, well nourished, non toxic
Chest - clear bilaterally
Abdomen - soft, non-tender, positive bowel sounds, pos CVAT, no incisional pain or distention
Genitalia - normal
Rectal - normal
Skin - warm & dry with no rash
Neuro - AOx3, no motor deficits
Extremities - no clubbing, no cyanosis, no edema
Incision - clean, dry
Dressing - clean, dry, intact
Care Review
Data Reviewed
Discussed with: Nursing and Family
CT Scan: Image Pers Reviewed
[2024-10-20] MEDS: LEVAQUIN 100 IV (19:30)
[2024-10-20] MEDS: MORPHINE SULFATE 4 MG IV (20:13)
[2024-10-21] MEDS: MORPHINE SULFATE 4 MG IV ×3 (00:23→08:37)
[2024-10-21] MEDS: NSS 1000 IV (02:38)
[2024-10-21 03:03] VITALS: BP 135/81
[2024-10-21 07:32] LABS: % Immature Granulocytes 0.3 % (0-0.5); % Lymphocytes 5.7 % (20.5-51.1); % Monocytes 3.7 % (1.7-9.3); % Neutrophils 90.3 % (42.2-75.2); Absolute Lymphocytes 0.7 10^3/uL (1.2-3.4); Absolute Monocytes 0.5 10^3/uL (0.1-0.6); Absolute Neutrophils 11.6 10^3/uL (1.4-6.5); Hematocrit 39.9 % (37.0-47.0); Mean Corp Hgb Conc. 32.6 g/dL (33.0-37.0); Mean Corpuscular Hgb 29.4 pg (27.0-31.0); Mean Corpuscular Volume 90.3 fL (81.0-99.0); Mean Platelet Volume 11.5 fL (7.4-10.4); Nucleated Red Blood Cells % 0 %; Platelet Count 168 10^3/uL (130-400); Red Blood Cell Count 4.42 10^6/uL (4.20-5.40); Red Cell Dist. Width 12.5 % (11.5-14.5); White Blood Cell Count 12.8 10^3/uL (4.8-10.8)
[2024-10-21 08:05] LABS: Blood Urea Nitrogen 17 mg/dl (7-17); Carbon Dioxide 26 mmol/L (22-30); Chloride 104 mmol/L (98-107); Estimated Creatinine Clearance 111 ml/min; Glucose 117 mg/dl (70-99); Potassium 4.6 mmol/L (3.5-5.1); Sodium 142 mmol/L (135-145); eGFR > 60.00
[2024-10-21 08:08] VITALS: BP 139/69
[2024-10-21] MEDS: NORVASC 5 MG PO (08:30)
[2024-10-21] MEDS: ZOFRAN 4 MG IV (09:38)
[2024-10-21] MEDS: FLUSH (NSS) 1 FLUSH IV ×2 (09:40→13:45)
[2024-10-21] MEDS: NSS IV (10:19)
--- NOTE | 2024-10-21 10:29 | CM ---
Reviewed the chart notes and spoke with the patient at the bedside. The patient resides with her spouse in a two story home with no steps to enter. The patient reports no DME/VN/SNF in the past. The patient confirmed her pharmacy is the [facility] [address] [place]. The patient anticipates being discharged to home with no needs. The patient's spouse will provide transportation home. CM continues to be available to patient/family and is monitoring medical plan for needs at discharge.
Plan: Discharge to home when medically stable. No needs anticipated at this time.
[2024-10-21 11:58] VITALS: BP 154/77
--- NOTE | 2024-10-21 12:05 | W.PN.URO.CBU ---
Today's Communication / Plan
-
hl iv encourage po siting in chair try oral agesics
Assessment / Plan
-
lt forniceal rupture with increase left urinioma as left jj stent migrated below et upj and is edematous twth hydro stil pain despite jj stent most liely due to urina-[ma ctratine is 0.6 and wbc down will remve chacko tomorrow and try
and transition to po ansagesic may try toadolaso
Diagnosis
-
Date of Service: October 21, 2024
-
Patient Diagnosis:
Post Op Day:
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
Post Op Day:
Subjective
-
fsome difernt flank pain today s/p jj stent exchage
Objective
-
Vital Signs
Temp Pulse Resp BP Pulse Ox
98.3 F 69 20 154/77 92
10/21/24 11:58 10/21/24 11:58 10/21/24 11:58 10/21/24 11:58 10/21/24 11:58
Intake and Output
10/20/24 10/21/24 10/22/24
06:59 06:59 06:59
Intake Total 1970 / 1970
Output Total 1800 / 1800
Balance 170 / 170
Intake:
Oral fluids 720 / 720
IV fluids (Total) 1250 / 1250
Output:
Urine, Chacko 1800 / 1800
Laboratory Results
10/21/24 05:34
10/21/24 05:34
Review of Systems
-
: Flank Pain and Urgency
Physical Exam
-
General - well developed, well nourished, no acute distress
Chest - clear bilaterally
Abdomen - soft, non-tender, positive bowel sounds, no CVAT, no incisional pain or distention
Genitalia - normal
Rectal - normal
Skin - warm & dry with no rash
Neuro - AOx3, no motor deficits
Extremities - no clubbing, no cyanosis, no edema
Incision - clean, dry
Dressing - clean, dry, intact
Care Review
Data Reviewed
Discussed with: Nursing and Family
[2024-10-21] MEDS: TORADOL 30 MG IV (13:38)
[2024-10-21 15:14] VITALS: BP 149/67
[2024-10-21 19:16] VITALS: BP 135/54
[2024-10-21] MEDS: FLUSH (NSS) 2 FLUSH IV (19:59)
[2024-10-21] MEDS: LEVAQUIN 100 IV (19:59)
[2024-10-21 23:03] VITALS: BP 138/72
--- NOTE | 2024-10-22 04:01 | DOWNTIME ---
There was a [employer] Downtime on 10/22/2024 from 0100 to 10/22/2024 at 0350. Downtime documentation of patient's care, including medication administrations, has been reconciled in the electronic record per guidelines. Refer to the
patient's paper chart under the miscellaneous tab to see printed paper medication records and downtime forms.
--- NOTE | 2024-10-22 08:46 | W.DCSUMMARY ---
Discharge Summary
Discharge Data
Date of Admission: 10/20/24
Date of Discharge: 10/22/24
-
Pending Results: No
Hospital Course
The t had a urinoma from forniceal rupture, She previously underwent a laser lithotripsy ofrenal stones followed by stenting The stent migrated post op and she had repeat obstruction She was taken nba to the op room for astent exchange
She did well post op and is being discharge s
Discharge Plan
-
Patient Disposition: Home (Routine Discharge)
Discharge Diagnosis/Procedures: left renal obstructuion forniceal rupture
Condition: Good
Diet: No restrictions
Activity: No restrictions
Driving Restrictions: As prior to admission
Referrals:
Star Dhaliwal MD [Active] - (calldr flashe for appt to remove stant or if questions or problems [phone])
Romulo Hickey MD [Family Provider] -
Additional Discharge Medication Instructions: obtain kub xray anbout nov 03 call [phone] to schedule or walk in
Prescriptions:
Continued
amlodipine 5 mg Tablet
5 mg PO DAILY
cefadroxil 1 gram tablet
1,000 mg PO BID 5 Days Qty: 10 0RF
Discharge Orders:
Discharge Patient (As Directed); Ordered 10/22/24
Ordered By: Star Dhaliwal
Discharge Date and Time
Print Language: PERSIAN
--- NOTE | 2024-10-22 08:52 | W.PN.URO.CBU ---
Today's Communication / Plan
-
home when ride avaiable
Assessment / Plan
-
lt forniceal rupture with increase left urinioma as left jj stent migrated below et upj now replaced fafebrile no analgesics tofdayeels well
Diagnosis
-
Date of Service: October 22, 2024
-
Patient Diagnosis:
Post Op Day:
Patient Diagnosis:
Post Op Day:
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
Post Op Day:
Subjective
-
feels better no colic toerating stent
Objective
-
Vital Signs
Temp Pulse Resp BP Pulse Ox
98.2 F 76 20 138/72 93
10/21/24 23:03 10/21/24 23:03 10/21/24 23:03 10/21/24 23:03 10/21/24 23:03
Intake and Output
10/21/24 10/22/24 10/23/24
06:59 06:59 06:59
Intake Total 1970 / 1970 1540 / 1540
Output Total 1800 / 1800 1450 / 1450
Balance 170 / 170 90 / 90
Intake:
Oral fluids 720 / 720 1440 / 1440
IV fluids (Total) 1250 / 1250
IV piggybacks 100 / 100
Output:
Urine, Andujar 1800 / 1800 400 / 400
Urine, Voided 1050 / 1050
Other:
Number of approximated MODERATE 1
amounts of urine
Laboratory Results
10/21/24 05:34
10/21/24 05:34
Review of Systems
-
: No Symptoms
Physical Exam
-
General - well developed, well nourished, no acute distress
Chest - clear bilaterally
Abdomen - soft, non-tender, positive bowel sounds, no CVAT, no incisional pain or distention
Genitalia - normal
Rectal - normal
Skin - warm & dry with no rash
Neuro - AOx3, no motor deficits
Extremities - no clubbing, no cyanosis, no edema
Incision - clean, dry
Dressing - clean, dry, intact
Care Review
Data Reviewed
Discussed with: Nursing
[2024-10-22 09:00] VITALS: BP 132/73
[2024-10-22] MEDS: NORVASC 5 MG PO (09:57)
== END 2024-10-22 11:13 | disposition home or self-care (01) ==
LOC: SDS 16:39
PROVIDERS: ATTENDING PHYSICIAN Specialist; EMERGENCY PHYSICIAN Emergency Medicine; FAMILY PHYSICIAN Family Medicine
DX: N13.8 Other obstructive and reflux uropathy (principal); N20.0 Calculus of kidney; N28.89 Other specified disorders of kidney and ureter; Z98.890 Other specified postprocedural states
CPT/HCPCS: 52332; 74018; 74176; 76000; 80048; 80053; 81003; 81015; 85025; 87086; 96361; 96374; 96375; 96376; 99285; A4300; C2617

== ENCOUNTER → 2024-11-03 10:47 | Outpatient (REF) | payer BC, SELFPAY | LOC: HWRAD 10:47 | PROVIDERS: ATTENDING PHYSICIAN Specialist; FAMILY PHYSICIAN Family Medicine | DX: N20.0 Calculus of kidney (principal) | CPT/HCPCS: 74018 ==

== ENCOUNTER → 2024-11-24 10:19 | Outpatient (REF) | payer BC, SELFPAY | LOC: RAD 10:19 | PROVIDERS: ATTENDING PHYSICIAN Specialist; FAMILY PHYSICIAN Family Medicine | DX: N20.0 Calculus of kidney (principal) | CPT/HCPCS: 74018 ==

== ENCOUNTER 2024-12-09 06:22 | Day surgery (SDC) | payer BC, SELFPAY ==
[2024-12-09] VITALS (9 sets, daily range): BP systolic 126–152; BP diastolic 69–85; BMI 27.6
[2024-12-09] MEDS: NORMOSOL-R/PLASMALYTE-A 1000 IV (06:27)
[2024-12-09] MEDS: DILAUDID 0.25 MG IV (09:28)
[2024-12-09] MEDS: Pyridium 200 MG PO (10:06)
[2024-12-09] MEDS: TORADOL 30 MG IV (10:32)
== END 2024-12-09 11:10 | disposition home or self-care (01) ==
LOC: SDS 06:22
PROVIDERS: ATTENDING PHYSICIAN Specialist
PROC: 0T778DZ Dilation of Left Ureter with Intraluminal Device, Via Natural or Artificial Opening Endoscopic (ICD-10-PCS; 2024-12-09)
PROC: BT1F1ZZ Fluoroscopy of Left Kidney, Ureter and Bladder using Low Osmolar Contrast (ICD-10-PCS; 2024-12-09)
PROC: 0TP98DZ Removal of Intraluminal Device from Ureter, Via Natural or Artificial Opening Endoscopic (ICD-10-PCS; 2024-12-09)
PROC: 0TC48ZZ Extirpation of Matter from Left Kidney Pelvis, Via Natural or Artificial Opening Endoscopic (ICD-10-PCS; 2024-12-09)
DX: N20.0 Calculus of kidney (principal); I10 Essential (primary) hypertension
CPT/HCPCS: 52356; 74420; 76000; 82365; C1894; C2617; J1580

== ENCOUNTER → 2025-06-23 17:08 | Outpatient (REF) | payer BC, SELFPAY | LOC: WDC 17:08 | PROVIDERS: ATTENDING PHYSICIAN Physician Assistant Medical | DX: Z12.31 Encounter for screening mammogram for malignant neoplasm of breast (principal) | CPT/HCPCS: 77063; 77067 ==